=== PATIENT | female | born 1950 | race Caucasian/White ===

== ENCOUNTER 2017-12-08 11:26 | Outpatient (CLI) | payer MEDICARE, BC ==
--- NOTE | 2017-12-08 12:19 | RAD ---
LEFT HIP TWO VIEWS: HISTORY: Left hip pain. FINDINGS: Mild osteophytosis and subchondral sclerosis. Joint space and femoral head contour are maintained. No acute fracture, dislocation, or aggressive osseous erosions. IMPRESSION: Mild osteoarthritic changes, left hip. POS: [facility]
== END 2017-12-08 11:27 | disposition home or self-care (01) ==
LOC: SCSRAD 11:26
PROVIDERS: ATTEND Anesthesiology Pain Medicine
DX: M87.052 Idiopathic aseptic necrosis of left femur (principal); M16.12 Unilateral primary osteoarthritis, left hip

== ENCOUNTER 2018-01-30 13:12 | Outpatient (CLI) | payer MEDICARE, BC ==
--- NOTE | 2018-01-30 16:10 | MRI ---
MRI LEFT HIP WITHOUT CONTRAST: INDICATIONS: Left hip pain for many years. History of back surgery. FINDINGS: There is full thickness disruption of the left gluteus minimus tendon from its attachments with mild trochanteric bursitis. The left gluteus medius tendon appears intact. The rectus femoris and left h amstring origin appears intact. No iliopsoas tenosynovitis is present. There is some mild muscular atrophy of the left gluteus minimus. There is mild left hip osteoarthrosis with some degenerative fr aying the superior glenoid labrum. No enlarged lymph nodes are evident. o acute fracture is demonst rated. There is susceptibility artifact from instrumentation at L5-S1. IMPRESSION: 1. Complete disruption of the left gluteus minimus tendon with mild trochanteric bursitis. 2. Mild degenerative arthrosis of the left hip with degenerative fraying of the superior glenoid lab rum. POS: [facility]
== END 2018-01-30 13:13 | disposition home or self-care (01) ==
LOC: SCSMRI 13:12
PROVIDERS: ATTEND Nurse Practitioner Family
DX: M25.552 Pain in left hip (principal); S76.012A Strain of muscle, fascia and tendon of left hip, initial encounter; M70.62 Trochanteric bursitis, left hip; M16.12 Unilateral primary osteoarthritis, left hip; S73.192A Other sprain of left hip, initial encounter

== ENCOUNTER 2018-05-25 23:51 | Emergency (ER) | payer MEDICARE, BC ==
[2018-05-26] MEDS ORDERED: Acetaminophen 500 MG TAB ONE (00:42)
[2018-05-26] MEDS ORDERED: Ketorolac Tromethamine 30 MG/ML VIAL ONE (00:42)
[2018-05-26 01:07] LABS: #Basophils 0.2 thou/uL (0.0-0.2); #Eosinphils 0.2 thou/uL (0.0-0.7); #Lymphocytes 4.6 thou/uL (1.20-3.40); #Monocytes 1.1 thou/uL (0.11-0.59); #Neutrophils 5.3 thou/uL (1.40-6.50); %Basophils 1.5 % (0.0-1.0); %Eosinophils 1.5 % (0.0-10.0); %Lymphocytes 40.3 % (21.0-51.0); %Monocytes 9.6 % (0.0-10.0); %Neutrophils 47.1 % (42.0-75.0); Mean Corpuscular HGB CONC 33.1 g/dL (32.0-36.0); Mean Corpuscular Hemoglobin 30.3 pg (27.0-31.0); Mean Corpuscular Volume 91.6 fL (78.0-98.0); Mean Platelet Volume 7.5 fL (7.4-10.4); Platelet Count 375 thou/uL (130-400); RBC Distribution Width 12.9 % (11.5-14.5); Red Blood Cell (RBC) Count 4.62 mill/uL (4.20-5.40); White Blood Cell (WBC) Count 11.4 thou/uL (4.8-10.8)
[2018-05-26 01:10] LABS: Anion Gap 14 mmol/L (10-20); BUN (Urea Nitrogen) 12 mg/dL (9.8-20.1); Calc. Creatinine Clearance 0 mL/min (70-130); Calcium 9.6 mg/dL (7.8-10.44); Carbon Dioxide 22 mmol/L (23-31); Chloride 108 mmol/L (98-107); Estimated GFR-MDRD 84; Glucose 94 mg/dL (80-115); Potassium 3.9 mmol/L (3.5-5.1); Sodium 140 mmol/L (136-145)
== END 2018-05-26 01:53 | disposition home or self-care (01) ==
LOC: SCSER 23:51
DX: M62.838 Other muscle spasm (principal); I10 Essential (primary) hypertension; K21.9 Gastro-esophageal reflux disease without esophagitis; E78.5 Hyperlipidemia, unspecified; M81.0 Age-related osteoporosis without current pathological fracture; Z79.899 Other long term (current) drug therapy
CPT/HCPCS: 80048; 84484; 85025; 93005; 96374; J1885

== ENCOUNTER 2018-08-02 14:52 | Outpatient (CLI) | payer MEDICARE, BC ==
--- NOTE | 2018-08-02 16:25 | CT ---
CT LUMBAR SPINE WITHOUT CONTRAST: 08/02/18 Multiple axial tomograms obtained through the lumbar spine with multiplanar reconstruction. INDICATIONS: Low back pain. History of prior lumbar surgery. Comparison made to lumbar CT dated 01/01/15. FINDINGS: Postoperative changes are again noted at L5-S1. Pedicle screws are seen at both of these levels with posterior laminectomy change. There is loss of disc space at L5-S1 with a grade I anterolisthesis whi ch appears stable from the prior exam of 2015. End plate sclerosis is similar in appearance to the pr ior study. There is bilateral foraminal stenosis at L5-S1 similar to the prior study primarily due to the anterolisthesis and hypertrophic change. At L4-5, there has been progressive degenerative disc change since prior study with loss of disc spac e and vacuum phenomenon at the disc. There is a diffuse disc bulge abutting the thecal sac at this le [place]. Facet hypertrophy. No significant central canal stenosis. Mild foraminal narrowing due to facet hypertrophy. At L3-4, there has been progressive degenerative disc change since prior exam with loss of disc space and vacuum phenomenon present. There is a posterior disc bulge abutting the thecal sac. Facet hypert rophy. Mild central canal stenosis. Mild left foraminal encroachment secondary to asymmetric disc bul ge extending into the left foramina and the associated facet hypertrophy. At L2-3, mild loss of disc space although findings at this level are grossly stable from prior study. No significant disc bulge or protrusion. No central canal or foraminal stenosis. At L1-2, no significant disc bulge. No central canal or foraminal stenosis. IMPRESSION: 1. Postoperative and degenerative changes at L5-S1 again noted with a grade I anterolisthesis an d bilateral foraminal stenosis. Findings at this level are grossly stable when compared to 2015. 2. There is progression of degenerative disc changes at L3-4 and at L4-5 when compared to the pr ior exam s described above. POS: [facility]
== END 2018-08-02 14:53 | disposition home or self-care (01) ==
LOC: SCSCT 14:52
PROVIDERS: ATTEND Orthopaedic Surgery
DX: M54.5 Low back pain (principal); M47.817 Spondylosis without myelopathy or radiculopathy, lumbosacral region; M43.17 Spondylolisthesis, lumbosacral region; M48.07 Spinal stenosis, lumbosacral region; M51.36 Other intervertebral disc degeneration, lumbar region; Z98.890 Other specified postprocedural states
CPT/HCPCS: 72131

== ENCOUNTER 2018-08-29 19:27 | Emergency (ER) | payer MEDICARE, BC ==
[2018-08-29] MEDS ORDERED: Morphine 4 MG/ML VIAL ONE (20:05)
[2018-08-29] MEDS ORDERED: Promethazine HCl 25 MG/ML VIAL ONE (20:05)
== END 2018-08-29 20:32 | disposition home or self-care (01) ==
LOC: SCSER 19:27
DX: M54.42 Lumbago with sciatica, left side (principal); M54.5 Low back pain; G89.29 Other chronic pain; K21.9 Gastro-esophageal reflux disease without esophagitis; E78.5 Hyperlipidemia, unspecified; M81.0 Age-related osteoporosis without current pathological fracture; Z79.899 Other long term (current) drug therapy
CPT/HCPCS: 96372; J2270; J2550

== ENCOUNTER 2019-01-14 12:17 | Emergency (ER) | payer MEDICARE, BC ==
[2019-01-14] MEDS ORDERED: Acetaminophen 500 MG TAB ONE (12:39)
--- NOTE | 2019-01-14 12:49 | RAD ---
Exam:Right foot 3 views HISTORY: Worsening pain. Patient felt a pop while dancing at a wedding. COMPARISON: None FINDINGS: Subtle lucency with periosteal thickening involving the proximal fifth metatarsal. No addit ional osseous abnormalities. Joint spaces are preserved. Lisfranc alignment is maintained IMPRESSION: Nondisplaced fracture involving the proximal fifth metatarsal
== END 2019-01-14 13:13 | disposition home or self-care (01) ==
LOC: SCSER 12:17
DX: S92.354A Nondisplaced fracture of fifth metatarsal bone, right foot, initial encounter for closed fracture (principal); E78.5 Hyperlipidemia, unspecified; K21.9 Gastro-esophageal reflux disease without esophagitis; Z85.89 Personal history of malignant neoplasm of other organs and systems; X58.XXXA Exposure to other specified factors, initial encounter; Y93.41 Activity, dancing